=== PATIENT | male | born 1955 | race African-American/Black ===

== ENCOUNTER 2017-05-14 20:04 | Emergency (ER) | payer OTHER ==
[~2017-05-14] VITALS: Ht 180.3 cm; Wt 77.3 kg
[~2017-05-14 20:04] MED LIST: ATEN50TA PO; FERR1TAB24 PO; FOLI1TAB15 PO; MINO2.5T3 PO; MULT1CAP32 PO; NIFE90TA38 PO; SEVE400 PO; [UNRECOGNIZED DRUG - REMARK]
[2017-05-14] MEDS ORDERED: ETOMIDATE 2 MG/ML 10 ML VIAL IVP ONE (20:06)
[2017-05-14] MEDS ORDERED: VECURONIUM BROMIDE 10 MG/VIAL IVP ONE (20:06)
[2017-05-14] MEDS ORDERED: [UNRECOGNIZED DRUG - REMARK] PO (20:07)
[2017-05-14] MEDS ORDERED: NALOXONE HCL 1 MG/ML 2 ML SYG ONE (20:14)
[2017-05-14] MEDS ORDERED: NALOXONE HCL 1 MG/ML 2 ML SYG IVP ONE (20:15)
[2017-05-14 20:35] LABS: BASOPHILS % (AUTO) 0.8 % (0.0-2.0); EOSINOPHILS % (AUTO) 2.3 % (1.0-6.0); HEMATOCRIT 37.1 % (41-53); HEMOGLOBIN 11.6 g/dL (13.5-17.5); LYMPHOCYTES # (AUTO) 2.2 K/uL (1.0-4.8); LYMPHOCYTES % (AUTO) 20.9 % (22.0-44.0); MEAN CORPUSCULAR HEMOGLOBIN 29.2 pg (26.0-34.0); MEAN CORPUSCULAR HGB CONC 31.2 G/dL (31.0-37.0); MEAN CORPUSCULAR VOLUME 94 fL (80-100); MONOCYTES # (AUTO) 1.1 K/uL (0.1-1.0); MONOCYTES % (AUTO) 10.7 % (2.0-9.0); NEUTROPHILS # (AUTO) 6.9 K/uL (1.8-7.7); NEUTROPHILS % (AUTO) 65.3 % (40.0-70.0); PLATELET COUNT (AUTO) 146 K/uL (150-450); RED BLOOD CELL COUNT(AUTO) 3.97 MIL/uL (4.50-5.90); RED CELL DISTRIBUTION WIDTH 23.5 % (11.5-14.5)
[2017-05-14 20:50] LABS: ANION GAP 21 mmol/L (8-16); CALCIUM, TOTAL 11.4 mg/dL (8.8-10.5); CARBON DIOXIDE 23 mmol/L (22-29); CHLORIDE 98 mmol/L (98-107); CREATININE 15.48 mg/dL (0.60-1.30); GLOMERULAR FILTR. RATE CALC 4 mL/min (>60); GLUCOSE,RANDOM 116 mg/dL (70-110); POTASSIUM 5.8 mmol/L (3.5-5.1); SODIUM SERUM 142 mmol/L (136-145); UREA NITROGEN, BLOOD 63 mg/dL (7-18)
[2017-05-14 20:56] LABS: ALANINE AMINOTRANSFERASE 12 U/L (12-78); ALBUMIN 3.9 g/dL (3.4-5.0); ALKALINE PHOSPHATASE 93 U/L (46-116); ASPARTATE AMINOTRANSFERASE 15 U/L (15-37); BILIRUBIN,TOTAL 0.4 mg/dL (0.1-1.0); TOTAL PROTEIN, SERUM 7.5 g/dL (6.4-8.2)
[2017-05-14 20:58] LABS: TROPONIN I 0.13 ng/mL (0.00-0.05)
[2017-05-14] MEDS ORDERED: MIDAZOLAM HCL 5 MG/ML VIAL IVP ONE (21:00)
[2017-05-14] MEDS ORDERED: RAPID SEQUENCE KIT [RSI] 1 EACH KIT ONE ×2 (21:01→21:05)
[2017-05-14] MEDS ORDERED: SUCCINYLCHOLINE CHLORIDE 20 MG/ML 10 ML VIAL ONE ×2 (21:01→21:05)
[2017-05-14 21:09] LABS: SALICYLATE 1.9 mg/dL (2.8-20.0)
[2017-05-14 21:14] LABS: B-TYPE NATRIURETIC PEPTIDE 1460 pg/mL (0-100)
[2017-05-14] MEDS ORDERED: DEXTROSE 50%-WATER 25 GM/50 ML SYRINGE IVP ONE (21:15)
[2017-05-14] MEDS ORDERED: INSULIN REGULAR, HUMAN 100 UNITS/ML IVP ONE (21:15)
[2017-05-14] MEDS ORDERED: CALCIUM GLUCONATE 100 MG/ML 10 ML IVP ONE (21:15)
[2017-05-14] MEDS ORDERED: SODIUM BICARBONATE [ADULT] 8.4% 50 MEQ/50 ML SYRINGE IVP ONE (21:15)
[2017-05-14 21:20] LABS: ACETAMINOPHEN < 2 mcg/mL (10-30)
[2017-05-14 22:50] LABS: ABG A-A DIFF O2 156.4 mmHg (10-20.0); ABG BASE EXCESS -1.1 mmol/L (-2.0-3.0); ABG CARBOXYHEMOGLOBIN 1.3 % (0.0-1.5); ABG HCO3 23.8 mmol/L (22.0-26.0); ABG METHEMOGLOBIN 0.5 % (0.0-1.5); ABG OXYGEN CONTENT 16.7 mL/dL (15.0-23.0); ABG OXYGEN SATURATION 99.1 % (95.0-98.0); ABG OXYHEMOGLOBIN 97.3 % (94.0-100.0); ABG PCO2 40 mmHg (35-45); ABG PH 7.392 (7.35-7.450); PO2, ARTERIAL BG 154.1 mmHg (79.0-87.0); SOURCE, BLOOD GAS ARTERIAL; TEMPERATURE, FAHRENHEIT, BG 99.7 FAHREN (96.0-98.6)
[2017-05-14 22:51] LABS: O2 DEVICE,BLOOD GAS VENTILATOR (ROOM AIR); PEEP,BG 0 cm H2O; SITE, BLOOD GAS RT FEMORAL; VT, ABG 600 ml
[2017-05-14] MEDS ORDERED: PROPOFOL 1000 MG/ISO-OSM 100 ML IV PRN ×2 (23:00)
[2017-05-14 23:31] VITALS: BP 163/110
[2017-05-14 23:52] LABS: GLUCOSE,POINT OF CARE 70 MG/DL (70-110)
== END 2017-05-15 00:02 | disposition short-term general hospital (02) ==
LOC: EMS 20:05
DX: S06.5X9A Traumatic subdural hemorrhage with loss of consciousness of unspecified duration, initial encounter (principal); N17.9 Acute kidney failure, unspecified; E87.5 Hyperkalemia; E11.9 Type 2 diabetes mellitus without complications; I10 Essential (primary) hypertension; F12.90 Cannabis use, unspecified, uncomplicated; F17.210 Nicotine dependence, cigarettes, uncomplicated; W18.09XA Striking against other object with subsequent fall, initial encounter; Y93.89 Activity, other specified; Y92.89 Other specified places as the place of occurrence of the external cause; Y99.8 Other external cause status
CPT/HCPCS: 31500; 36415; 70450; 71045; 80053; 82140; 82805; 82962; 83880; 84484; 85025; 93005; 96374; 96375; 99291; G0480 ×2; G0481; J0330; J0610; J1815; J2250; J2310; J2704; J3490 ×2; Z7610; 94002